=== PATIENT | female | born 1995 ===

== ENCOUNTER 2017-12-28 23:46 | Emergency (ER) | payer SELFPAY ==
[2017-12-29 00:19] VITALS: BP 114/75
[2017-12-29 00:31] LABS: URINE BACTERIA RARE (<OCC); URINE BILIRUBIN NEGATIVE (NEGATIVE); URINE BLOOD 3+ (NEGATIVE); URINE CLARITY Clear (Clear); URINE COLOR Amber (YELLOW); URINE GLUCOSE (UA) NORMAL (Normal); URINE LEUKOCYTE ESTERASE 3+ Leu/uL (Negative); URINE PROTEIN 1+ mg/dL (NEGATIVE); URINE UROBILINOGEN NORMAL mg/dL (0.2-1.0)
--- NOTE | 2017-12-29 00:39 | C.PDOC ---
History Of Present Illness Patient c/o vaginal burning and pain with urination from yesterday. Patient denies flank pain, nausea, vomiting, fever, abdominal pain. Time Seen by Provider: 12/28/17 23:51 Chief Complaint (Nursing): Female Genitourinary History Per: Patient History/Exam Limitations: no limitations Onset/Duration Of Symptoms: Days (2) Current Symptoms Are (Timing): Still Present Severity: Moderate Pain Scale Rating Of: 6 Quality Of Discomfort: Burning Associated Symptoms: Urinary Symptoms. denies: Fever, Chills, Nausea, Vomiting , Diarrhea, Back Pain, Chest Pain Past Medical History Reviewed: Historical Data, Nursing Documentation, Vital Signs Vital Signs: Last Vital Signs Temp 98.4 F 12/29/17 00:00 Pulse 89 12/29/17 00:00 Resp 18 12/29/17 00:00 BP 114/75 12/29/17 00:00 Pulse Ox 99 12/29/17 00:41 - Medical History PMH: No Chronic Diseases Surgical History: No Surg Hx Family History: States: No Known Family Hx - Social History Hx Alcohol Use: No Hx Substance Use: No - Immunization History Hx Tetanus Toxoid Vaccination: No Hx Influenza Vaccination: No Hx Pneumococcal Vaccination: No Review Of Systems Except As Marked, All Systems Reviewed And Found Negative. Physical Exam - Physical Exam Appears: Well, Non-toxic, No Acute Distress Skin: Normal Color, Warm, No Rash Head: Atraumatic, Normacephalic Eye(s): bilateral: Normal Inspection Cardiovascular: Rhythm Regular Respiratory: Normal Breath Sounds Gastrointestinal/Abdominal: Soft, No Tenderness Pelvic: Normal External Exam, No Normal Bimanual Exam (pain with exam), Vaginal Discharge (thick white creamy), No Cervical Motion Tenderness, Other (no cervicitis) Extremity: Normal ROM, No Pedal Edema Neurological/Psych: Oriented x3, Normal Speech, Normal Cognition ED Course And Treatment O2 Sat by Pulse Oximetry: 99 Progress Note: POC - negative. UA sent, GC/Chlamydia sent. Disposition - Disposition Referrals: [facility] at [facility] [Outside] Disposition: HOME/ ROUTINE Disposition Time: 00:52 Condition: STABLE Additional Instructions: Follow up in Clinic within 2-3 days. Return to ED if feel worse. Prescriptions: Nitrofurantoin Macrocrystals [Macrobid] 1 cap PO BID #10 cap Metronidazole [Metrogel-Vaginal] 1 ea VG QPM 7 Days #7 gel Phenazopyridine [Pyridium] 200 mg PO TID #9 tab Instructions: Vaginitis, Urinary Tract Infection, Adult (DC) Forms: [facility] (Yakut) - Clinical Impression Clinical Impression: UTI (urinary tract infection), Vaginitis
[2017-12-29] MEDS ORDERED: cefTRIAXone (Rocephin) 250 mg Inj IM STA ×2 (00:51→00:55)
[2017-12-29 01:30] VITALS: PULSE 84; RESP 16; TEMP 99; O2SAT 98
== END 2017-12-29 01:30 | disposition home or self-care (01) ==
LOC: C.ER 23:46
DX: N39.0 Urinary tract infection, site not specified (principal); N76.0 Acute vaginitis
CPT/HCPCS: 81001; 87491; 87591; 96372; 99284; J0696

== ENCOUNTER 2018-03-28 17:30 | Emergency (ER) | payer SELFPAY ==
[2018-03-28 17:38] VITALS: BP 121/65; PULSE 122; RESP 18; TEMP 98.2; O2SAT 100
[2018-03-28 18:52] LABS: SQUAMOUS EPITHIAL 6 /hpf (0-5); URINE BACTERIA RARE (<OCC); URINE BILIRUBIN NEGATIVE (NEGATIVE); URINE BLOOD NEGATIVE (NEGATIVE); URINE CLARITY Clear (Clear); URINE COLOR Yellow (YELLOW); URINE GLUCOSE (UA) NORMAL (Normal); URINE LEUKOCYTE ESTERASE NEG Leu/uL (Negative); URINE PROTEIN NEGATIVE (NEGATIVE)
[2018-03-28] MEDS ORDERED: Sodium Chloride 0.9% 1,000 ML IV STA (19:08)
[2018-03-28] MEDS ORDERED: Sodium Chloride 0.9% 1,000 ML ONE (19:32)
[2018-03-28 19:35] LABS: BASO % 0.4 % (0.0-2.0); EOS # 0.1 K/uL (0.0-0.7); EOS % 0.9 % (0.0-4.0); HEMOGLOBIN 12.6 g/dL (11.0-16.0); LYMPH # 1.8 K/uL (1.0-4.3); LYMPH % 20.5 % (20.0-40.0); MEAN CELL VOLUME 86.1 fL (81.0-99.0); MEAN CORPUSCULAR HGB CONC 33.7 g/dL (33.0-37.0); MEAN PLATELET VOLUME 8.9 fL (7.2-11.7); MONO # 0.7 K/uL (0.0-0.8); MONO % 7.7 % (0.0-10.0); NEUT % 70.5 % (50.0-75.0); RBC 4.33 Mil/uL (3.80-5.20); WHITE BLOOD COUNT 8.5 K/uL (4.8-10.8)
[2018-03-28 19:50] LABS: ALB/GLOB RATIO 1.5 (1.0-2.1); ALBUMIN 4.5 g/dL (3.5-5.0); ALT/SGPT 14 U/L (9-52); AST/SGOT 19 U/L (14-36); BLOOD UREA NITROGEN 16 mg/dL (7-17); CALCIUM 9.3 mg/dl (8.6-10.4); GFR NON-AFRICAN AMERICAN > 60
--- NOTE | 2018-03-28 21:21 | C.PDOC ---
History Of Present Illness 22 y/o female, presents to the ED complaining of abdominal cramping in the suprapubic area for the past few days. No associated vaginal bleeding. LMP was 11/9. Patient reports cramping feels similar to menstrual cramps, but stronger. Otherwise she denies any nausea, vomiting, vaginal discharge, fever, or chills. Patient is . Time Seen by Provider: 03/28/18 18:59 Chief Complaint (Nursing): Abdominal Pain History Per: Patient History/Exam Limitations: no limitations Onset/Duration Of Symptoms: Days Current Symptoms Are (Timing): Still Present Location Of Pain/Discomfort: Suprapubic Quality Of Discomfort: Cramping Past Medical History Reviewed: Historical Data, Nursing Documentation, Vital Signs Vital Signs: Last Vital Signs Temp 98.2 F 03/28/18 17:36 Pulse 122 H 03/28/18 17:36 Resp 18 03/28/18 17:36 BP 121/65 03/28/18 17:36 Pulse Ox 100 03/28/18 17:36 - Medical History PMH: No Chronic Diseases Surgical History: No Surg Hx Family History: States: No Known Family Hx - Social History Hx Alcohol Use: No Hx Substance Use: No - Immunization History Hx Tetanus Toxoid Vaccination: No Hx Influenza Vaccination: No Hx Pneumococcal Vaccination: No Review Of Systems Except As Marked, All Systems Reviewed And Found Negative. Constitutional: Negative for: Fever, Chills Gastrointestinal: Positive for: Abdominal Pain (suprapubic). Negative for: Nausea, Vomiting Genitourinary: Negative for: Dysuria, Frequency, Vaginal Discharge, Vaginal Bleeding Physical Exam - Physical Exam Appears: Non-toxic, No Acute Distress Skin: Normal Color, Warm, Dry Head: Atraumatic, Normacephalic Eye(s): bilateral: Normal Inspection, PERRL, EOMI Oral Mucosa: Moist Neck: Normal ROM Chest: Symmetrical Cardiovascular: Rhythm Regular, No Murmur Respiratory: Normal Breath Sounds, No Accessory Muscle Use, No Rhonchi, No Wheezing Gastrointestinal/Abdominal: Soft, No Tenderness, No Guarding, No Rebound Back: No CVA Tenderness, No Vertebral Tenderness Extremity: Bilateral: Atraumatic, Normal Color And Temperature Neurological/Psych: Oriented x3, Normal Speech ED Course And Treatment - Laboratory Results Result Diagrams: 03/28/18 19:30 03/28/18 19:30 O2 Sat by Pulse Oximetry: 100 (RA) Pulse Ox Interpretation: Normal - CT Scan/US Pelvic US Other Rad Studies (CT/US): Read By Radiologist, Radiology Report Reviewed CT/US Interpretation: Name:GENET CHEN Exam Date:Mar 28, 2018 8:16:47 PM EST. Modality Type:SD\US\OT\SR. Description:US - PELVIC REAL TIME WITH IMAGE DOCUMENTATION COMPLETE. Gender:F Laterality:Not applicable. :97 Referring Physician:Lissette Mckeon (CHETAN). History: pelvic pain. COMPARISON: None available. Technique: TA. FINDINGS: Uterus. Measures 7.88 x 4.88 x 6.43 cm. Normal in size and appearance. No fibroid or other mass lesion seen. No IUP is seen. Endometrium. Measures 23.9 mm in diameter. Thickened. Cervix. No cervical abnormality identified measuring 2.81 cm. Right ovary. Measures 4.15 x 2.46 x 3.61 cm. No solid mass. Normal flow. Left ovary. Measures 2.45 x 1.09 x 2.23 cm. No solid mass. Normal flow. Free fluid. Fluid is seen in cul-de-sac. Other Findings. None. IMPRESSION: 1. No IUP is seen. 2. Fluid is seen in the cul-de-sac. 3. Thickened endometrium. Progress Note: Blood work and urine sent to the lab. Patient notified of (+) test. Administered IV fluids. Will order Pelvic US to r/o ectopic . Informed by computer support technician that patient is refusing transvaginal US. Patient is medically stable for discharge home. Counseled regarding results. Recommended that patient return in 2 days for repeat Beta-HCG Disposition - Disposition Disposition: HOME/ ROUTINE Disposition Time: 21:41 Condition: STABLE Additional Instructions: Follow up with your PMD/OBGYN within 1-2 days. Repeat beta HCG in 48 h to follow progression of the . Return to ED immediately if feel worse. Prescriptions: No.137/Iron/Folic Acd [ Vitamin Tablet] 1 each PO DAILY #30 tablet Instructions: - The First Month, - The Second Month Forms: [employer] ([place]an) - Clinical Impression Clinical Impression: Pelvic pain affecting - PA / SIGN MAINTENANCE / Resident Statement MD/DO has reviewed & agrees with the documentation as recorded. - Scribe Statement The provider has reviewed the documentation as recorded by the Brandieibgely Gómez All medical record entries made by the Brandieibgely were at my direction and pe rsonally dictated by me. I have reviewed the chart and agree that the record accurately reflects my personal performance of the history, physical exam, medical decision making, and the department course for this patient. I have also personally directed, reviewed, and agree with the discharge instructions and disposition.
[2018-03-28 21:52] LABS: HCG,QUALITATIVE URINE POSITIVE (NEGATIVE)
--- NOTE | 2018-03-29 11:21 | US ---
Indication: , pelvic pain Comparison: None available Technique: Transabdominal pelvic ultrasound. The patient declined transvaginal pelvic ultrasound. Findings: The uterus measures approximately 7.9 x 4.9 x 6.4 cm. Anteverted. Endometrium measures approximately 2.4 cm in diameter, thickened. Cervix length measures approximately 2.8 cm. The right ovary measures 4.2 x 2.5 x 3.6 cm. The left ovary measures 2.5 x 1.1 x 2.2 cm. Blood flow was demonstrated to both ovaries. Small pelvic free fluid. Impression: Thickened endometrium measuring approximately 2.4 cm in diameter. No evidence of intrauterine gestational sac. If indeed the patient is based on serum beta HCG values, the sonographic findings represent either: Very early IUP; embryonic demise; ectopic gestation. Follow-up with serial quantitative serum beta HCG measurements and post OBGYN follow-up as clinically indicated, since ectopic gestation cannot be excluded based only on sonographic findings. Small pelvic free fluid. Preliminary impression was provided by [facility].
== END 2018-03-28 22:10 | disposition home or self-care (01) ==
LOC: C.ER 17:30
DX: O26.891 Other specified pregnancy related conditions, first trimester (principal); R10.2 Pelvic and perineal pain; Z3A.00 Weeks of gestation of pregnancy not specified
CPT/HCPCS: 76856; 80053; 81001; 84702; 84703; 85025; 86850; 86900; 96360; 99284; J7030

== ENCOUNTER 2018-04-18 16:52 | Emergency (ER) | payer OTHER ==
[2018-04-18 17:00] VITALS: O2SAT 100
--- NOTE | 2018-04-18 17:45 | C.PDOC ---
History Of Present Illness 22 year old female presents to the ED for evaluation of tight, crampy back pain and pink-colored vaginal spotting which began earlier today. Patient states her last menstrual period was 02/25 and is currently around 8 weeks . Patient is and has regularly been following up in clinic. Patient denies abdominal pain, nausea, vomiting at this time. Time Seen by Provider: 04/18/18 17:07 Chief Complaint (Nursing): Back Pain History Per: Patient History/Exam Limitations: no limitations Onset/Duration Of Symptoms: Hrs Current Symptoms Are (Timing): Still Present Quality Of Discomfort: Cramping, "Pain" Previous Symptoms: Back Pain Additional History Per: Patient Past Medical History Reviewed: Historical Data, Nursing Documentation, Vital Signs Vital Signs: Last Vital Signs Temp 98.5 F 04/18/18 16:57 Pulse 89 04/18/18 16:57 Resp 20 04/18/18 16:57 BP 116/72 04/18/18 16:57 Pulse Ox 100 04/18/18 16:57 - Medical History PMH: No Chronic Diseases Surgical History: No Surg Hx Family History: States: Unknown Family Hx - Social History Hx Alcohol Use: No Hx Substance Use: No - Immunization History Hx Tetanus Toxoid Vaccination: No Hx Influenza Vaccination: No Hx Pneumococcal Vaccination: No Review Of Systems Gastrointestinal: Negative for: Nausea, Vomiting, Abdominal Pain Genitourinary: Positive for: Other (pink-colored vaginal spotting ) Musculoskeletal: Positive for: Back Pain Physical Exam - Physical Exam Appears: Non-toxic, No Acute Distress Skin: Normal Color, Warm, Dry Head: Atraumatic, Normacephalic Eye(s): bilateral: Normal Inspection Oral Mucosa: Moist Neck: Supple Chest: Symmetrical, No Deformity, No Tenderness Cardiovascular: Rhythm Regular, No Murmur Respiratory: Normal Breath Sounds, No Rales, No Rhonchi, No Wheezing Gastrointestinal/Abdominal: Soft, No Tenderness, No Guarding, No Rebound Back: No CVA Tenderness, No Vertebral Tenderness, No Paraspinal Tenderness Extremity: Normal ROM, Capillary Refill (less than 2 seconds ) Neurological/Psych: Oriented x3, Normal Speech, Normal Cognition ED Course And Treatment - Laboratory Results Result Diagrams: 04/18/18 18:02 04/18/18 18:02 Lab Interpretation: Normal ([facility] [place] [id number]) O2 Sat by Pulse Oximetry: 100 (on RA) Pulse Ox Interpretation: Normal - CT Scan/US Pelvic ultrasound Other Rad Studies (CT/US): Read By Radiologist, Radiology Report Reviewed CT/US Interpretation: Accession No. : [id number]. Patient Name / ID : GENET CHEN / [id number]. Exam Date : 04/18/2018 18:02:33 ( Approved ). Study Comment : Sex / Age : F / 22Y. Creator : Hammad Hui MD. Dictator : Hammad Hui MD. Slasher : Pigment Processor : Hammad Hui MD. Approver2 : Report Date : 04/18/2018 18:33:14. My Comment : . Date of service: 04/18/2018. PROCEDURE: First trimester ultrasound. HISTORY: with vaginal spotting. COMPARISON: 03/28/2018 pelvic ultrasound. TECHNIQUE: Standard protocol for this study/examination. FINDINGS: LMP: 02/25/2018. Prior examinations from the current : 03/28/2018. TECHNIQUE: Real-time 2D imaging, duplex and color Doppler. FINDINGS: Cardiac activity: Present. Rate: One hundred forty- six BPM. Measurements: [place] rump length: 0.85 cm. Gestational age based on CRL 6 weeks 6 days. Gestational age 7 weeks 4 days based on gestational sac measurement 2.73 cm. Gestational age derived from LMP: 7 weeks 3 days. BERENICE based on LMP: 12/02/2018. BERENICE based on biometry: 12/03/2018. Gestational concordance documented. Yolk sac identified. Cervix: No Cervical abnormalities: Negative examination for cervical dilatation or effacement. Closed cervix measuring 3.70 cm. Subchorionic hemorrhage: None. UTERUS: 6.4 x 10.2 x 4.0 cm. ADNEXA: Right: 3.9 x 2.8 x 4.0 cm. Normal Doppler arterial waveform documented. Left: 2.8 x 1.3 x 3.3 cm. Normal Doppler arterial waveform documented. Fluid in the cul-de-sac: None. IMPRESSION: 7 weeks 2 days live intrauterine gestation. Gestational concordance documented Progress Note: Bloodwork, urinalysis, and pelvic ultrasound ordered and reviewed. Reevaluation Time: 20:28 Reassessment Condition: Improved Disposition Counseled Patient/Family Regarding: Studies Performed, Diagnosis, Need For Followup - Disposition Referrals: [facility] at [facility] [Outside] Disposition: HOME/ ROUTINE Disposition Time: 20:29 Condition: STABLE Instructions: Bleeding With (DC) Forms: [employer] (Chilean) - Clinical Impression Clinical Impression: Bleeding in early - Scribe Statement The provider has reviewed the documentation as recorded by the Scribe (Vandana Boss) Provider Attestation: All medical record entries made by the Scribe were at my direction and personally dictated by me. I have reviewed the chart and agree that the record accurately reflects my personal performance of the history, physical exam, medical decision making, and the department course for this patient. I have also personally directed, reviewed, and agree with the discharge instructions and disposition.
[2018-04-18 18:06] LABS: BASO % 0.4 % (0.0-2.0); EOS # 0.1 K/uL (0.0-0.7); EOS % 0.6 % (0.0-4.0); HEMOGLOBIN 13.1 g/dL (11.0-16.0); LYMPH # 1.4 K/uL (1.0-4.3); LYMPH % 16.7 % (20.0-40.0); MEAN CELL VOLUME 86.6 fL (81.0-99.0); MEAN CORPUSCULAR HEMOGLOBIN 29.2 pg (27.0-31.0); MEAN CORPUSCULAR HGB CONC 33.7 g/dL (33.0-37.0); MEAN PLATELET VOLUME 8.8 fL (7.2-11.7); MONO # 0.6 K/uL (0.0-0.8); MONO % 6.6 % (0.0-10.0); NEUT # 6.4 K/uL (1.8-7.0); NEUT % 75.7 % (50.0-75.0); RBC 4.48 Mil/uL (3.80-5.20); RED CELL DISTRIBUTION WIDTH 12.8 % (11.5-14.5); WHITE BLOOD COUNT 8.4 K/uL (4.8-10.8)
[2018-04-18 18:13] LABS: SQUAMOUS EPITHIAL 3 /hpf (0-5); URINE BACTERIA RARE (<OCC); URINE BILIRUBIN NEGATIVE (NEGATIVE); URINE CLARITY Clear (Clear); URINE COLOR Straw (YELLOW); URINE GLUCOSE (UA) NORMAL (Normal); URINE LEUKOCYTE ESTERASE NEG Leu/uL (Negative); URINE PROTEIN NEGATIVE (NEGATIVE); URINE UROBILINOGEN NORMAL mg/dL (0.2-1.0)
[2018-04-18 18:16] LABS: URINE BLOOD NEGATIVE (NEGATIVE)
[2018-04-18 18:35] LABS: ALB/GLOB RATIO 1.6 (1.0-2.1); ALBUMIN 4.5 g/dL (3.5-5.0); ALT/SGPT 21 U/L (9-52); AST/SGOT 18 U/L (14-36); BLOOD UREA NITROGEN 9 mg/dL (7-17); CALCIUM 9.6 mg/dl (8.6-10.4); GFR NON-AFRICAN AMERICAN > 60
--- NOTE | 2018-04-18 18:37 | US ---
Date of service: 04/18/2018 PROCEDURE: First trimester ultrasound HISTORY: with vaginal spotting COMPARISON: 03/28/2018 pelvic ultrasound TECHNIQUE: Standard protocol for this study/examination. FINDINGS: LMP: 02/25/2018 Prior examinations from the current : 03/28/2018 TECHNIQUE: Real-time 2D imaging, duplex and color Doppler. FINDINGS: Cardiac activity: Present Rate: One hundred forty-six BPM Measurements: [place] rump length: 0.85 cm Gestational age based on CRL 6 weeks 6 days Gestational age 7 weeks 4 days based on gestational sac measurement 2.73 cm Gestational age derived from LMP: 7 weeks 3 days BERENICE based on LMP: 12/02/2018 BERENICE based on biometry: 12/03/2018 Gestational concordance documented Yolk sac identified Cervix: No Cervical abnormalities: Negative examination for cervical dilatation or effacement. Closed cervix measuring 3.70 cm Subchorionic hemorrhage: None UTERUS: 6.4 x 10.2 x 4.0 cm. ADNEXA: Right: 3.9 x 2.8 x 4.0 cm. Normal Doppler arterial waveform documented. Left: 2.8 x 1.3 x 3.3 cm. Normal Doppler arterial waveform documented Fluid in the cul-de-sac: None IMPRESSION: 7 weeks 2 days live intrauterine gestation. Gestational concordance documented.
[2018-04-18 20:48] VITALS: BP 104/64; PULSE 72; RESP 16; TEMP 98.6
== END 2018-04-18 20:47 | disposition home or self-care (01) ==
LOC: C.ER 16:52
DX: O20.9 Hemorrhage in early pregnancy, unspecified (principal); Z3A.08 8 weeks gestation of pregnancy